=== PATIENT | male | born 1985 | race Two or more races ===

== ENCOUNTER 2023-01-04 00:25 | Emergency (ER) | payer SELFPAY ==
[~2023-01-04] VITALS: Ht 167.6 cm; Wt 65.0 kg
[2023-01-04 01:14] VITALS: BP 130/84
== END 2023-01-04 01:30 | disposition home or self-care (01) ==
LOC: ER 00:25
DX: S60.511A Abrasion of right hand, initial encounter (principal); V89.2XXA Person injured in unspecified motor-vehicle accident, traffic, initial encounter; Y93.89 Activity, other specified; Y92.89 Other specified places as the place of occurrence of the external cause; Y99.8 Other external cause status